=== PATIENT | female | born 1980 | race Caucasian/White ===

== ENCOUNTER 2020-06-28 06:12 | Emergency (ER) | payer OTHER, SELFPAY ==
[2020-06-28 06:30] VITALS: BP 152/87; PULSE 86; RESP 20; TEMP 36.5; O2SAT 99; BMI 19.1
--- NOTE | 2020-06-28 07:05 | HMH.EDWNDL ---
ED Disposition Clinical Impression: Finger laceration Qualifiers: Encounter type: initial encounter Finger: index finger Damage to nail status: without damage Foreign body presence: without foreign body Laterality: right Qualified Code(s): S61.210A - Laceration without foreign body of right index finger without damage to nail, initial encounter Disposition: Home, Self-Care Condition on Discharge: Good Instructions: DI for Laceration Repair Additional Instructions: sutures out 10 days and recheck if needed Referrals: PCP,No [Primary Care Provider] - - Critical Care Critical Care Time: No Attestation: On 06/28/20, the high probability of a clinically significant, sudden or life threatening deterioration of the following system(s) required my full and direct attention, intervention and personal management. The time I documented below is in addition to time spent performing reported procedures but includes the following listed in this critical care notation. Medical Decision Making - Medical Records Medical records reviewed: Yes: I reviewed the patient's medical records. - Homer Inquiry Pt receiving controlled substance: No Vital Signs: 06/28/20 06:30 Temperature 97.7 F Temperature Source Oral Pulse Rate [Left] 86 Respiratory Rate 20 Blood Pressure [Right Arm] 152/87 H Blood Pressure Mean [Right Arm] 108 Blood Pressure Source [Right Arm] Automatic Cuff Blood Pressure Position [Right Arm] Sitting 02 Sat by Pulse Oximetry 99 Oxygen Delivery Method Room Air Orders (Tests/Meds): ED MEDICATIONS Discontinued Medications Generic Name Dose Route Start Last Admin Trade Name Freq PRN Reason Stop Dose Admin Tetanus/Diphtheria Toxoids 0.5 ml 06/28/20 06:40 06/28/20 06:43 Tetanus-Diphth Toxoid, Adult 0.5ml Syr IM 06/28/20 06:41 0.5 ml .ONCE ONE Administration Wound/Laceration HPI - General Chief Complaint: Wound/Laceration Stated Complaint: AO 06/28/20 0400 Laceration right index finger Time Seen by Provider: 06/28/20 06:50 Mode of Arrival: Ambulatory Source of Information: Patient, Significant Other, Medical Record Limitations: No Limitations Description of Symptoms (Recalled from ER Triage Doc. by RN): Pt states she cutting lettuce and sliced the end of her right index finger. Lac is approx 2cm long and bleeding is controlled. - History of Present Illness HPI narrative: lac rt index finger distal finger volar surface Onset (ago): hour(s) Extremity Location: Right: hand Place: home Patient tetanus UTD: No Context: sharp object use Associated symptoms: none - Related Data Home Medications Medication Instructions Recorded Confirmed No Known Home Medications 06/28/20 06/28/20 Allergies Allergy/AdvReac Type Severity Reaction Status Date / Time No Known Allergies Allergy Verified 06/28/20 06:39 [facility] History - Hepatitis A Screen Drug use history?: No High risk sexual behaviors?: No History of sexually transmitted infection?: No Currently employed?: No Childcare worker?: No Do you have indoor plumbing?: Yes Do you have electricity?: Yes Attestation statement:: This patient has been screened for Hepatitis A risk factors. I have reviewed the patient's past medical history: Yes Medical History: Denies:: Diabetes Mellitus Type 1, Diabetes Mellitus Type 2 - Social History Smoking Status: Current every day smoker Tobacco Type: cigarettes # Packs/Day (cigarettes): 1 Alcohol Intake: never Occupational Status: unemployed ROS Obtained: Yes All systems reviewed & no additional complaints - Constitutional Constitutional: Denies fever(s) - Eyes Eyes: Denies change in vision - ENT Ears, Nose, Mouth, and Throat: Denies sore throat - Cardiovascular Cardiovascular: Denies chest pain - Respiratory Respiratory: Denies cough - Gastrointestinal Gastrointestingal: Denies: abdominal pain - Genitourinary Female Genitourinary: Denies hematuria
[2020-06-28 07:19] VITALS: BP 133/71; PULSE 76; RESP 17; TEMP 36.7; O2SAT 98
== END 2020-06-28 07:14 | disposition home or self-care (01) ==
PROVIDERS: Emergency Provider Emergency Medicine
DX: S61.210A Laceration without foreign body of right index finger without damage to nail, initial encounter (principal); W26.0XXA Contact with knife, initial encounter; Y92.010 Kitchen of single-family (private) house as the place of occurrence of the external cause; Z23 Encounter for immunization; F17.210 Nicotine dependence, cigarettes, uncomplicated
CPT/HCPCS: 12001; 64450; 90714; 99281

== ENCOUNTER 2020-08-28 12:34 | Observation (INO) | payer OTHER, SELFPAY ==
[2020-08-28] VITALS (7 sets, daily range): BP systolic 112–160; BP diastolic 66–91; PULSE 65–138; RESP 12–22; TEMP 36.8–37.1; O2SAT 96–100; BMI 20.7; BMI 19.3
--- NOTE | 2020-08-28 12:27 | ECG_ITS ---
APPROVED REPORT Exam: Resting ECG HR:147 bpm ECG Measurements Heart Rate 147 AXES [place] 118 P 74 QRSd 72 QRS 72 QT 278 T -41 QTc 435 Conclusion Sinus tachycardia Biatrial enlargement ST & T wave abnormality, consider inferior ischemia vs rate effect Abnormal ECG Electronically signed by : Jack Villanueva, 09/01/2020 07:35:27
--- NOTE | 2020-08-28 12:40 | XR_ITS ---
PROCEDURE: XR CHEST 2V CLINICAL HISTORY: not feeling well COMPARISON: No exams were available for comparison FINDINGS: The cardiomediastinal silhouette and pulmonary vascularity are within normal limits. Bilateral nodular opacities are present overlying the 5th rib on both sides consistent with nipple shadows. There is an additional 1 cm indeterminate nodule of the lingula. The remaining lungs are clear. There are mild degenerative changes in the midthoracic spine. IMPRESSION: 1 cm indeterminate nodule of the lingula. Consider chest CT for further evaluation. Dictated by: Alek Baugh MD 08/28/2020 14:08 Alek Baugh MD in [place] 08/28/2020 14:08
--- NOTE | 2020-08-28 12:48 | HMH.EDGENADL ---
ED Disposition Clinical Impression: Shortness of breath, Intravenous drug abuse, Sinus tachycardia Chest pain Qualifiers: Chest pain type: unspecified Qualified Code(s): R07.9 - Chest pain, unspecified Leukocytosis Qualifiers: Leukocytosis type: unspecified Qualified Code(s): D72.829 - Elevated white blood cell count, unspecified Disposition: Admitted as Observation Condition on Discharge: Good - Critical Care Critical Care Time: No Attestation: On , the high probability of a clinically significant, sudden or life threatening deterioration of the following system(s) required my full and direct attention, intervention and personal management. The time I documented below is in addition to time spent performing reported procedures but includes the following listed in this critical care notation. Medical Decision Making - [place] Inquiry Pt receiving controlled substance: No Vital Signs: 08/28/20 12:35 08/28/20 15:00 08/28/20 15:30 Temperature 98.7 F Temperature Source Oral Pulse Rate 130 H 128 H Pulse Rate [Right] 138 H Respiratory Rate 16 17 21 Blood Pressure 112/74 122/78 Blood Pressure [Right Arm] 124/91 H Blood Pressure Mean [Right Arm] 102 Blood Pressure Source [Right Arm] Automatic Cuff Blood Pressure Position [Right Arm] Sitting 02 Sat by Pulse Oximetry 100 98 99 Oxygen Delivery Method Room Air 08/28/20 16:30 Temperature Temperature Source Pulse Rate 122 H Pulse Rate [Right] Respiratory Rate 12 Blood Pressure 124/70 Blood Pressure [Right Arm] Blood Pressure Mean [Right Arm] Blood Pressure Source [Right Arm] Blood Pressure Position [Right Arm] 02 Sat by Pulse Oximetry 98 Oxygen Delivery Method - Lab Data Lab Results 08/28/20 12:40: WBC 23.6 H*, RBC 4.57, Hgb 13.3, Hct 42.0, MCV 92.0, MCH 29.2, MCHC 31.7 L, RDW 14.0, Plt Count 272, MPV 8.6, Neut % (Auto) 97.3 H, Lymph % (Auto) 1.1 L, [place] % (Auto) 0.5 L, Eos % (Auto) 0.9, Baso % (Auto) 0.3, Neut # (Auto) 23.0 H, Lymph # (Auto) 0.3 L, [place] # (Auto) 0.1, Eos # (Auto) 0.2, Baso # (Auto) 0.1, Total Counted 100, Neutrophils % (Manual) 94 H, Band Neutrophils % 2.0, Lymphocytes % (Manual) 1 L, Monocytes % (Manual) 2, Eosinophils % (Manual) 1, Platelet Estimate Normal, Hypochromasia 1+ 08/28/20 12:40: Sodium 136, Potassium 3.7, Chloride 100, Carbon Dioxide 24, Anion Gap 15.7 H, BUN 17, Creatinine 0.90, Estimated Creat Clear 76, Estimated GFR 70, Est GFR ( Amer) 85, Glucose 165 H, Calcium 9.3, Total Bilirubin 1.7 H, AST 74 H, ALT 72, Alkaline Phosphatase 154 H, Troponin I < 0.01, Total Protein 8.1, Albumin 4.3, Globulin 3.8 H, Albumin/Globulin Ratio 1.1 08/28/20 12:40: ESR 14 08/28/20 12:40: C-Reactive Protein 11.5 H 08/28/20 12:40: TSH 45.70 H, Free T4 Index 1.6 L, Thyroxine (T4) 7.2, T3 Uptake 22 L 08/28/20 12:45: Urine Color Yellow, Urine Appearance Clear, Urine pH 6.0, Ur Specific [place] 1.010, Urine Protein 1+, Urine Glucose (UA) Trace, Urine Ketones Negative, Urine Blood Negative, Urine Nitrate Positive, Urine Bilirubin 2+ A, Urine Urobilinogen >=8.0, Ur Leukocyte Esterase Trace, Urine RBC None, Urine WBC 3-5, Ur Squamous Epith Cells 3-5, Urine Bacteria None 08/28/20 12:45: Urine HCG, Qual Negative 08/28/20 12:45: Urine Opiates Screen Positive H, Urine Methadone Screen Negative, Ur Barbituates Screen Negative, Ur Phencyclidine Scrn Negative, Ur Amphetamines Screen TNP, U Benzodiazepines Scrn Negative, Urine Cocaine Screen Negative, U Marijuana (THC) Screen Negative 08/28/20 13:18: Lactate 3.3 H 08/28/20 16:06: Troponin I < 0.01 Result diagrams: 08/28/20 12:40 08/28/20 12:40 Orders (Tests/Meds): ED MEDICATIONS Generic Name Dose Route Start Last Admin Trade Name Freq PRN Reason Stop Dose Admin Piperacillin Sod/Tazobactam 100 mls @ 200 mls/hr 08/28/20 18:00 Sod 4.5 gm/ Sodium Chloride IV 09/11/20 17:59 Q6H [facility] Protocol Miscellaneous 1 each 08/28/20 18:00 08/28/20 18:02 Vancomycin Consult
[2020-08-28 12:52] LABS: Basophils # 0.1 K/mm3 (0-0.2); Basophils % 0.3 % (0.1-2.0); Eosinophils # 0.2 K/mm3 (0.0-0.4); Eosinophils % 0.9 % (0.1-12.0); Hemoglobin 13.3 g/dL (12.2-16.2); Lymphocytes # 0.3 K/mm3 (0.7-4.5); Lymphocytes % 1.1 % (10-50); Mean Corpuscular HGB Conc 31.7 g/dL (31.8-35.4); Mean Corpuscular Hemoglobin 29.2 pg (27.0-31.2); Mean Platelet Volume 8.6 fl (7.4-10.4); Monocytes # 0.1 K/mm3 (0.1-1.0); Monocytes % 0.5 % (1.7-9.3); Neutrophils % 97.3 % (37.0-80.0); Platelet Count 272 K/mm3 (142-424); Red Blood Count 4.57 M/mm3 (4.20-5.40); White Blood Count 23.6 K/mm3 (4.8-10.8)
[2020-08-28 12:54] LABS: Microscopic, Urine URINE MICROSCOPIC (MICROSCOPIC)
[2020-08-28 12:56] LABS: Appearance,Urine CLEAR (Clear); Blood, Urine Negative (Negative); Color,Urine YELLOW (Yellow); Glucose,Urine (UA) TRACE (Negative); Ketones,Urine Negative (Negative); Leukocyte Esterase,Urine TRACE (Negative); Nitrate,Urine POSITIVE (Negative); Protein,Urine 1+ (Negative); Urobilinogen,Urine >=8.0 EU/dl (0.2)
[2020-08-28 12:56] LABS: MANUAL DIFFERENTIAL MANUAL DIFFERENTIAL (MANUAL DIFF)
[2020-08-28 12:57] LABS: Chloride 100 mmol/L (98-107); Potassium 3.7 mmoL/L (3.5-5.1); Sodium 136 mmol/L (136-145)
[2020-08-28 12:59] LABS: Blood Urea Nitrogen 17 mg/dl (7-17); Creatinine Clearance Estimated 76 mL/min (50-200); Estimated Glomerular Filt Rate 70 ml/min (>60); GFR (African American) 85 ML/MIN (>60)
[2020-08-28 13:00] LABS: Alanine Aminotransferase 72 U/L (12-78); Albumin Level 4.3 g/dl (3.5-5.0); Albumin/Globulin Ratio 1.1 (1.1-1.8); Alkaline Phosphatase 154 U/L (38-126); Anion Gap 15.7 mEq/L (5-15); Aspartate Amino Transferase 74 U/L (14-36); Bilirubin,Total 1.7 mg/dl (0.2-1.3); Carbon Dioxide 24 mmol/L (22.0-30.0); Globulin 3.8 g/dL (1.3-3.2); Glucose 165 mg/dl (74-100); Total Protein,Serum 8.1 g/dl (6.3-8.2)
[2020-08-28 13:01] LABS: Bilirubin,Urine 2+ (Negative)
[2020-08-28 13:01] LABS: Calcium 9.3 mg/dl (8.4-10.2)
[2020-08-28 13:03] LABS: Urine Pregnancy, HCG Qual. Negative (Negative)
[2020-08-28 13:17] LABS: C-Reactive Protein 11.5 mg/L (0-4)
[2020-08-28 13:22] LABS: Troponin I < 0.01 ng/ml (0.00-0.034)
[2020-08-28 13:31] LABS: Erythrocyte Sedimentation Rate 14 mm/hr (0-20)
[2020-08-28 13:44] LABS: Lactic Acid 3.3 mmol/L (0.7-2.1)
--- NOTE | 2020-08-28 13:54 | CT_ITS ---
PROCEDURE: CT ANGIO CHEST CLINCIAL INDICATION: chest pain, soa COMPARISON: CR XR CHEST 2V from 08/28/2020 TECHNIQUE: IV Contrast: 70ML Isovue 370 Axial images obtained with sagittal and coronal reformats. All CT scans at the facility use one or more dose reduction, viz: automated exposure control, ma/kV adjustment per patient size (including targeted exams where dose is matched to indication, i.e. head), or iterative reconstruction technique. FINDINGS: HEART AND MEDIASTINAL STRUCTURES: No mediastinal or hilar mass. No adenopathy. No evidence of pulmonary embolus, aortic aneurysm, or aortic dissection.. LUNGS AND PLEURAL SPACES: Minimal ground-glass opacity is noted in the right upper lobe posteriorly image 54 series 3. There is a partially calcified nodule within the lingula measuring 13 mm. No other nodules are evident. No effusions or infiltrates. Minimal dependent changes noted in the lower lobes posteriorly. BONY STRUCTURES: Degenerative changes thoracic spine UPPER ABDOMEN: Nodularity is present in the retroperitoneum on the left consistent with mild adenopathy and is incompletely imaged. ADDITIONAL FINDINGS: No other significant abnormalities. IMPRESSION: 1. No acute intrathoracic findings. No evidence of pulmonary embolus or aortic aneurysm or dissection. 2. Minimal ground-glass opacity in the right upper lobe posteriorly nonspecific. 3. Partially calcified nodule within the lingula consistent with a granuloma. 4. Mild left-sided retroperitoneal adenopathy incompletely image. Dictated by: Alek Baugh MD 08/28/2020 15:09 Alek Baugh MD in [place] 08/28/2020 15:09
[2020-08-28 14:26] LABS: Free Thyroxine Index 1.6 ug/dL (5.93-13.13); T4 (Thyroxine) 7.2 ug/dl (5.53-11.0); Triiodothryronine (T3) Uptake 22 % (23.5-40.5)
[2020-08-28 15:11] LABS: Eosinophils % 1 % (0-3); Lymphocytes % 1 % (10-50); Monocytes % 2 % (2-9); Neutrophils % 94 % (42-76); Platelet Estimate Normal; Total Cells Counted 100
[2020-08-28 15:13] LABS: Hypochromasia 1+
--- NOTE | 2020-08-28 15:58 | CA_ITS ---
APPROVED REPORT EXAM: Comprehensive 2D, Doppler, and color-flow Echocardiogram Candy Wrapping Machine Operator: NEMO Bose, RVS Ht: 5 ft 5 in Wt: 125lbs BSA: 1.62 BP: 124/91 mmHg Indications: CP, Anxiety, IV drug abuse, r/o endocarditis Echo Enhancing Agent Comments: Technically difficult exam :patient in constant motion with hyperventillation and elevated heart rate. 2D Dimensions IVSd 0.80 cm LVEF (Visual) 59.40 % PWd 0.68 cm LVDd 4.07 cm LVDs 2.80 cm Aortic Root 2.53 cm Left Atrium 3.39 cm LVOT 1.84 cm (M/F) 1.5-2.5 M-Mode Dimensions LVDd 5.17 cm (3.5-5.7) LVDs 3.07 cm (3.5-5.7) EF (Teich) 71.00% EPSs 0.30 cm FS 40.60% EDV (Teich) 127.80 mL TAPSE 2.12 (<1.7) ESV (Teich) 37.00 mL LV Diastology E Decel Time 97.00 (160-240 msec) E/A Ratio 1.47 MED E' 19.30 (< 7 cm/sec) MED A' 12.40 cm/s E'/MED E' Ratio 4.87 (>14) LAT E' 20.30 (<10 cm/sec) LAT A' 12.80 cm/s E/LAT E' Ratio 4.63 (>14) Aortic Valve LVOT Max 102.00 (70-110 cm/s) LVOT VTI 16.78 cm AoV Peak Juan. 130.00 (50-130 cm/s) AO Peak GR. 6.80 mmHg AO Mean GR. 3.40 (<5 mmHg) AO VTI 19.45 (18-25 cm) JAKE (VTI) 2.29 (2.5-4.5 cm2) Mitral Valve MV A Velocity 64.00 (40-130 cm/s) E/A Ratio 1.47 MV Decel. Time 97.00 (160-240 ms) Pulmonary Valve PV Peak Velocity 91.00 (50-150 cm/s) Tricuspid Valve TR P. Velocity 219.00 cm/s Left Ventricle Left atrium is normal size, left ventricle is normal size, preserved left ventricular systolic function, visually estimated ejection fraction 55% with no regional wall motion abnormality, diastolic parameters are within normal range. Right Ventricle Right atrium and right ventricle are normal size and contractility. Aortic Valve Aortic valve is minimally thickened and fibrosed, there is no aortic stenosis or aortic insufficiency. Mitral Valve Mitral valve grossly normal, there is trace mitral regurgitation. Tricuspid Valve Tricuspid grossly normal, there is trace tricuspid regurgitation, tricuspid regurgitation jet velocity is inadequate for calculation of the right ventricular systolic pressure. Pulmonic Valve Pulmonic valve is poorly visualized. Great Vessels Aortic root is normal size. Pericardium No significant pericardial effusion noted. Conclusion 1. Normal left ventricular size, preserved left ventricular systolic function, visually estimated ejection fraction 55% with no regional wall motion abnormality, diastolic parameters are within normal range 2. Trace mitral and tricuspid regurgitation. 3. No significant pericardial effusion noted. Electronically signed by : Oscar Marie, 08/28/2020 18:37:06
--- NOTE | 2020-08-28 16:05 | PC.NURSE ---
vascular here for echo
[2020-08-28 16:58] LABS: Troponin I < 0.01 ng/ml (0.00-0.034)
[2020-08-28 17:31] LABS: Reflex Lactic Add Lactic Reflex
--- NOTE | 2020-08-28 17:41 | PC.NURSE ---
speaking with Dr. Bullock
[2020-08-28 17:43] LABS: Benzodiazepines Screen,Urine Negative ng/ml (<200)
[2020-08-28 17:44] LABS: Barbiturates Screen,Urine Negative ng/ml (<200)
[2020-08-28 17:45] LABS: Cannabinoid Screen,Urine Negative ng/ml (<50); Cocaine Screen,Urine Negative ng/ml (<300)
[2020-08-28 17:46] LABS: Methadone Screen,Urine Negative ng/ml (<300)
[2020-08-28 17:47] LABS: Opiate Screen,Urine Positive ng/ml (<300); Phencyclidine Screen,Urine Negative ng/ml (<25)
--- NOTE | 2020-08-28 17:57 | PC.NURSE ---
ordered supper trauy
--- NOTE | 2020-08-28 18:00 | PC.NURSE ---
notified house of admission
--- NOTE | 2020-08-28 18:00 | PC.NURSE ---
paged pharmacy for vanc consult
--- NOTE | 2020-08-28 18:02 | PC.NURSE ---
Spoke with Shaquille from [facility] pharmacy
--- NOTE | 2020-08-28 18:04 | PC.NURSE ---
Spoke with Shaquille from [facility] about vanc dosing. Shaquille advised to give patient a 1 gram loading dose and then to administer 750mg q 12 hrs. Advised he would put the orders in. Notified MD of dosing
[2020-08-28 18:05] LABS: Lactic Acid Follow Up (RFLX 1) 0.9 mmol/L (0.7-2.1)
[2020-08-28 19:33] LABS: Troponin I < 0.01 ng/ml (0.00-0.034)
--- NOTE | 2020-08-28 19:37 | HMH.HP ---
*Admission Date: 08/28/20 *Chief complaint: leukocytosis,cough,ivda *History of present illness: 3-day history of substernal chest pain, worse with breathing and cough, shortness of breath, worse with exertion. [place] hot and sweaty this morning but did not take her temperature. Nonproductive cough. No vomiting or diarrhea or abdominal pain. Also says when she awakened this morning she had an occipital headache and low backache which have both improved markedly. States that she is healthy except for thyroid problems and IV drug abuse. She had radiation treatment of Zoya's thyroiditis. She is supposed to be on propanolol but has been out for 3 days. She says that she was supposed to be put on thyroid supplement, but lost her insurance. She says that she has a history of IV drug abuse, she was clean for 8 years but relapsed about a year ago. Uses heroin daily. She last used yesterday and also used speed yesterday, which is not her usual drug of choice. Used a lot of drugs this past weekend. Admits to sharing needles. Prior history of hepatitis C, says she was treated and cured. No history of endocarditis. States that she had an abscess in her left antecubital area 3 days ago and was treated with antibiotics, it is now gone. Patient's work-up in the emergency room included an echo, chest x-ray, CT of the chest, urinalysis, sed rate and CRP. She had a markedly elevated white count of 23.6. Echo report is as follows Conclusion 1. Normal left ventricular size, preserved left ventricular systolic function, visually estimated ejection fraction 55% with no regional wall motion abnormality, diastolic parameters are within normal range 2. Trace mitral and tricuspid regurgitation. 3. No significant pericardial effusion noted. CT report is as follows 1. No acute intrathoracic findings. No evidence of pulmonary embolus or aortic aneurysm or dissection. 2. Minimal ground-glass opacity in the right upper lobe posteriorly nonspecific. 3. Partially calcified nodule within the lingula consistent with a granuloma. 4. Mild left-sided retroperitoneal adenopathy incompletely image Patient relays that she had an infection in her left AC fossa. History this sounds like phlebitis. There are no palpable lesions in this area, no redness warmth or purulence. The patient received her first Covid vaccination last week, she got the Pfizer variant. [facility] History Medical History: Reports:: Arrhythmia, Hypertension Denies:: Cancer, Diabetes Mellitus Type 1, Diabetes Mellitus Type 2 *Have you ever received a pneumonia vaccine?: No *Have you received a flu vaccine this season?: No Other Medical History: Reports: Thyroid Disease (GRAVES) - *Social History Last grade of school completed: High school graduate Smoking Status: Current every day smoker Tobacco Type: cigarettes # Packs/Day (cigarettes): 1 Alcohol Intake: never Substance Use Type: heroin *Occupational Status:: unemployed Housing: house *Travel in the last 8 weeks: None Family Hx:: Unable to obtain Review of Systems - Constitutional Reports fatigue - Eyes Denies change in vision - ENT Denies abnormal hearing - *Cardiovascular Reports rapid, pounding, or irregular heartbeat - *Respiratory Reports chest congestion, Reports cough - *Gastrointestinal Denies abdominal pain - *Genitourinary Denies difficulty urinating - *Musculoskeletal Denies abnormal walking - Integumentary/Breasts Reports lesions, Denies yellowing of the skin - *Neurologic Reports headache(s), Denies numbness, Denies weakness - Psychiatric Reports behavioral changes - Endocrine Reports rapid, pounding, or irregular heartbeat - Hematologic/Lymphatic Denies easy bleeding, Denies easy bruising - Allergic/Immunologic Denies hives Meds Home Medications Medication Instructions Recorded Confirmed Type Propranolol HCl 40 mg PO BID 08/28/20 08/28/20 History Ken
[2020-08-29] VITALS: BP 116/69; PULSE 99; RESP 18; TEMP 36.9; O2SAT 100
[2020-08-29 04:00] VITALS: BP 132/84; PULSE 98; RESP 18; TEMP 36.9; O2SAT 99
[2020-08-29 05:00] VITALS: BMI 19.7
--- NOTE | 2020-08-29 06:51 | PC.NURSE ---
A&OX4. PT TOLERATING RA WELL. PT INDEPENDENT IN ROOM. PT C/O ANXIETY AND RESTLESSNESS THIS SHIFT. GIVEN ATIVAN X1 PER NEUS. ON REASSESSMENT PT RESTING IN BED. PT IS VERY PLEASANT AND TALKATIVE. VERY OPEN ABOUT HER DRUG USE. NO OTHER C/O, VSS WILL CONTINUE TO MONITOR.
[2020-08-29 07:19] LABS: Basophils # 0.1 K/mm3 (0-0.2); Basophils % 0.2 % (0.1-2.0); Eosinophils # 0.3 K/mm3 (0.0-0.4); Eosinophils % 1.5 % (0.1-12.0); Hematocrit 34.7 % (37.0-47.0); Lymphocytes # 1.9 K/mm3 (0.7-4.5); Lymphocytes % 8.3 % (10-50); Mean Corpuscular HGB Conc 32.4 g/dL (31.8-35.4); Mean Corpuscular Hemoglobin 29.5 pg (27.0-31.2); Mean Corpuscular Volume 91.2 fl (81-99); Mean Platelet Volume 8.4 fl (7.4-10.4); Monocytes # 0.8 K/mm3 (0.1-1.0); Monocytes % 3.6 % (1.7-9.3); Neutrophils # 19.3 K/mm3 (1.8-7.8); Neutrophils % 86.3 % (37.0-80.0); Platelet Count 225 K/mm3 (142-424); Red Blood Count 3.81 M/mm3 (4.20-5.40); Red Cell Distribution Width 14.2 % (11.5-17.5); White Blood Count 22.4 K/mm3 (4.8-10.8)
[2020-08-29 07:28] LABS: Alanine Aminotransferase 45 U/L (12-78); Albumin Level 3.2 g/dl (3.5-5.0); Alkaline Phosphatase 95 U/L (38-126); Anion Gap 7.3 mEq/L (5-15); Aspartate Amino Transferase 45 U/L (14-36); Bilirubin,Total 0.6 mg/dl (0.2-1.3); Blood Urea Nitrogen 18 mg/dl (7-17); Carbon Dioxide 24 mmol/L (22.0-30.0); Chloride 108 mmol/L (98-107); Creatinine Clearance Estimated 81 mL/min (50-200); Estimated Glomerular Filt Rate 80 ml/min (>60); GFR (African American) 97 ML/MIN (>60); Globulin 3.2 g/dL (1.3-3.2); Glucose 104 mg/dl (74-100); Potassium 3.3 mmoL/L (3.5-5.1); Sodium 136 mmol/L (136-145); Total Protein,Serum 6.4 g/dl (6.3-8.2)
[2020-08-29 07:32] LABS: Calcium 8.2 mg/dl (8.4-10.2)
[2020-08-29 07:35] VITALS: BP 117/81; PULSE 93; RESP 18; TEMP 36.9; O2SAT 98
--- NOTE | 2020-08-29 07:56 | HMH.PHACONS ---
- Pharmacy Consult Date: 08/29/20 Time: 07:56 Referring provider: DR. CANDELARIA Reason for Consult:: VANCOMYCIN CONSULT Allergies and ADEs:: Allergies Allergy/AdvReac Type Severity Reaction Status Date / Time No Known Allergies Allergy Verified 06/28/20 06:39 Home Medications:: Home Medications Medication Instructions Recorded Confirmed Type Propranolol HCl 40 mg PO BID 08/28/20 08/28/20 History Height: 1.65 m Weight: 53.722 kg Laboratory Results:: Laboratory Results - last 24 hr 08/28/20 12:40: WBC 23.6 H*, RBC 4.57, Hgb 13.3, Hct 42.0, MCV 92.0, MCH 29.2, MCHC 31.7 L, RDW 14.0, Plt Count 272, MPV 8.6, Neut % (Auto) 97.3 H, Lymph % (Auto) 1.1 L, [place] % (Auto) 0.5 L, Eos % (Auto) 0.9, Baso % (Auto) 0.3, Neut # (Auto) 23.0 H, Lymph # (Auto) 0.3 L, [place] # (Auto) 0.1, Eos # (Auto) 0.2, Baso # (Auto) 0.1, Total Counted 100, Neutrophils % (Manual) 94 H, Band Neutrophils % 2.0, Lymphocytes % (Manual) 1 L, Monocytes % (Manual) 2, Eosinophils % (Manual) 1, Platelet Estimate Normal, Hypochromasia 1+ 08/28/20 12:40: Sodium 136, Potassium 3.7, Chloride 100, Carbon Dioxide 24, Anion Gap 15.7 H, BUN 17, Creatinine 0.90, Estimated Creat Clear 76, Estimated GFR 70, Est GFR ( Amer) 85, Glucose 165 H, Calcium 9.3, Total Bilirubin 1.7 H, AST 74 H, ALT 72, Alkaline Phosphatase 154 H, Troponin I < 0.01, Total Protein 8.1, Albumin 4.3, Globulin 3.8 H, Albumin/Globulin Ratio 1.1 08/28/20 12:40: ESR 14 08/28/20 12:40: C-Reactive Protein 11.5 H 08/28/20 12:40: TSH 45.70 H, Free T4 Index 1.6 L, Thyroxine (T4) 7.2, T3 Uptake 22 L 08/28/20 12:45: Urine Color Yellow, Urine Appearance Clear, Urine pH 6.0, Ur Specific [place] 1.010, Urine Protein 1+, Urine Glucose (UA) Trace, Urine Ketones Negative, Urine Blood Negative, Urine Nitrate Positive, Urine Bilirubin 2+ A, Urine Urobilinogen >=8.0, Ur Leukocyte Esterase Trace, Urine RBC None, Urine WBC 3-5, Ur Squamous Epith Cells 3-5, Urine Bacteria None 08/28/20 12:45: Urine HCG, Qual Negative 08/28/20 12:45: Urine Opiates Screen Positive H, Urine Methadone Screen Negative, Ur Barbituates Screen Negative, Ur Phencyclidine Scrn Negative, Ur Amphetamines Screen TNP, U Benzodiazepines Scrn Negative, Urine Cocaine Screen Negative, U Marijuana (THC) Screen Negative 08/28/20 13:18: Lactate 3.3 H 08/28/20 16:06: Troponin I < 0.01 08/28/20 17:50: Lactate 0.9 08/28/20 18:55: Troponin I < 0.01 08/29/20 06:55: Sodium 136, Potassium 3.3 L, Chloride 108 H, Carbon Dioxide 24, Anion Gap 7.3, BUN 18 H, Creatinine 0.80, Estimated Creat Clear 81, Estimated GFR 80, Est GFR ( Amer) 97, Glucose 104 H D, Calcium 8.2 L D, Total Bilirubin 0.6, AST 45 H D, ALT 45 D, Alkaline Phosphatase 95, Total Protein 6.4, Albumin 3.2 L D, Globulin 3.2, Albumin/Globulin Ratio 1.0 L Medical History: Reports:: Arrhythmia, Hypertension Denies:: Cancer, Diabetes Mellitus Type 1, Diabetes Mellitus Type 2 Assessment and Plan (1) Graves disease Status: Chronic Category: Medical Code(s): E05.00 - Thyrotoxicosis with diffuse goiter without thyrotoxic crisis or storm (2) Chest pain Status: Acute Qualifiers: Chest pain type: unspecified Qualified Code(s): R07.9 - Chest pain, unspecified Category: Medical Code(s): R07.9 - Chest pain, unspecified (3) Intravenous drug abuse Status: Chronic Category: Social Hx Code(s): F19.10 - Other psychoactive substance abuse, uncomplicated (4) Leukocytosis Status: Acute Qualifiers: Leukocytosis type: unspecified Qualified Code(s): D72.829 - Elevated white blood cell count, unspecified Category: Medical Code(s): D72.829 - Elevated white blood cell count, unspecified (5) Sinus tachycardia Status: Acute Category: Medical Code(s): R00.0 - Tachycardia, unspecified - Assessment and plan all Dx Assessment and Plan for all problems:: Age: 40 yo Serum creatinine: 0.8 mg/dL Height: 65.0 Inches Weight (kg): 53.7 Assessment:
[2020-08-29 07:57] LABS: Hemoglobin 11.3 g/dL (12.2-16.2); MANUAL DIFFERENTIAL MANUAL DIFFERENTIAL (MANUAL DIFF)
--- NOTE | 2020-08-29 08:06 | HMH.PHAVTE ---
[facility] Pharmacy VTE Monitoring - Patient Demographics Admission date: 08/29/20 Report Date: 08/29/20 Time: 08:06 Allergies/Adverse Reactions: Patient Allergies No Known Allergies Allergy (Verified 06/28/20 06:39) Height: 1.65 m Weight: 53.722 kg Patient Problems: Current Active Problems Chest pain (Acute) Shortness of breath (Acute) Leukocytosis (Acute) Intravenous drug abuse (Chronic) Sinus tachycardia (Acute) Graves disease (Chronic) - VTE Risk Labs: VTE Related Lab Results Hgb 11.3 g/dL (12.2-16.2) L D 08/29/20 06:55 Hct 34.7 % (37.0-47.0) L 08/29/20 06:55 Plt Count 225 K/mm3 (142-424) 08/29/20 06:55 BUN 18 mg/dl (7-17) H 08/29/20 06:55 Creatinine 0.80 mg/dl (0.52-1.04) 08/29/20 06:55 Estimated Creat Clear 81 mL/min (50-200) 08/29/20 06:55 Was VTE Risk Assessment Performed: Yes VTE Score: 0 VTE Risk Level: Very Low Risk Clinical Trial Participant: No - Prophylaxis VTE Prophylaxis Ordered?: Yes Types of VTE Prophylaxis: TEDS Knee High
[2020-08-29 08:50] LABS: Lymphocytes % 13 % (10-50); Monocytes % 4 % (2-9); Neutrophils % 83 % (42-76); Platelet Estimate Normal; RBC Morphology Normal; Total Cells Counted 100
--- NOTE | 2020-08-29 08:56 | HMH.ACPN2 ---
Internal Medicine - PN: Subj *Date: 08/29/20 *Time: 09:46 Interval history: 40-year-old female patient is resting in bed quietly, boyfriend asleep in recliner at bedside. She denies any chest pain during the night she does report that she takes a deep breath he feels like I am leaving ice . She does report using IV heroin daily as well as occasional IV methamphetamine, and recent alcohol abuse. Exam Vital signs and Labs for Last 24 Hours: Temp Pulse Resp BP Pulse Ox 98.5 F 93 H 18 117/81 98 08/29/20 07:35 08/29/20 07:35 08/29/20 07:35 08/29/20 07:35 08/29/20 07:35 Laboratory Results - last 24 hr 08/28/20 12:40: WBC 23.6 H*, RBC 4.57, Hgb 13.3, Hct 42.0, MCV 92.0, MCH 29.2, MCHC 31.7 L, RDW 14.0, Plt Count 272, MPV 8.6, Neut % (Auto) 97.3 H, Lymph % (Auto) 1.1 L, [place] % (Auto) 0.5 L, Eos % (Auto) 0.9, Baso % (Auto) 0.3, Neut # (Auto) 23.0 H, Lymph # (Auto) 0.3 L, [place] # (Auto) 0.1, Eos # (Auto) 0.2, Baso # (Auto) 0.1, Total Counted 100, Neutrophils % (Manual) 94 H, Band Neutrophils % 2.0, Lymphocytes % (Manual) 1 L, Monocytes % (Manual) 2, Eosinophils % (Manual) 1, Platelet Estimate Normal, Hypochromasia 1+ 08/28/20 12:40: Sodium 136, Potassium 3.7, Chloride 100, Carbon Dioxide 24, Anion Gap 15.7 H, BUN 17, Creatinine 0.90, Estimated Creat Clear 76, Estimated GFR 70, Est GFR ( Amer) 85, Glucose 165 H, Calcium 9.3, Total Bilirubin 1.7 H, AST 74 H, ALT 72, Alkaline Phosphatase 154 H, Troponin I < 0.01, Total Protein 8.1, Albumin 4.3, Globulin 3.8 H, Albumin/Globulin Ratio 1.1 08/28/20 12:40: ESR 14 08/28/20 12:40: C-Reactive Protein 11.5 H 08/28/20 12:40: TSH 45.70 H, Free T4 Index 1.6 L, Thyroxine (T4) 7.2, T3 Uptake 22 L 08/28/20 12:45: Urine Color Yellow, Urine Appearance Clear, Urine pH 6.0, Ur Specific [place]once 1.010, Urine Protein 1+, Urine Glucose (UA) Trace, Urine Ketones Negative, Urine Blood Negative, Urine Nitrate Positive, Urine Bilirubin 2+ A, Urine Urobilinogen >=8.0, Ur Leukocyte Esterase Trace, Urine RBC None, Urine WBC 3-5, Ur Squamous Epith Cells 3-5, Urine Bacteria None 08/28/20 12:45: Urine HCG, Qual Negative 08/28/20 12:45: Urine Opiates Screen Positive H, Urine Methadone Screen Negative, Ur Barbituates Screen Negative, Ur Phencyclidine Scrn Negative, Ur Amphetamines Screen TNP, U Benzodiazepines Scrn Negative, Urine Cocaine Screen Negative, U Marijuana (THC) Screen Negative 08/28/20 13:18: Lactate 3.3 H 08/28/20 16:06: Troponin I < 0.01 08/28/20 17:50: Lactate 0.9 08/28/20 18:55: Troponin I < 0.01 08/29/20 06:55: WBC 22.4 H*, RBC 3.81 L, Hgb 11.3 L D, Hct 34.7 L, MCV 91.2, MCH 29.5, MCHC 32.4, RDW 14.2, Plt Count 225, MPV 8.4, Neut % (Auto) 86.3 H, Lymph % (Auto) 8.3 L, [place] % (Auto) 3.6, Eos % (Auto) 1.5, Baso % (Auto) 0.2, Neut # (Auto) 19.3 H, Lymph # (Auto) 1.9, [place] # (Auto) 0.8, Eos # (Auto) 0.3, Baso # (Auto) 0.1, Total Counted 100, Neutrophils % (Manual) 83 H, Lymphocytes % (Manual) 13, Monocytes % (Manual) 4, Platelet Estimate Normal, RBC Morphology Normal 08/29/20 06:55: Sodium 136, Potassium 3.3 L, Chloride 108 H, Carbon Dioxide 24, Anion Gap 7.3, BUN 18 H, Creatinine 0.80, Estimated Creat Clear 81, Estimated GFR 80, Est GFR ( Amer) 97, Glucose 104 H D, Calcium 8.2 L D, Total Bilirubin 0.6, AST 45 H D, ALT 45 D, Alkaline Phosphatase 95, Total Protein 6.4, Albumin 3.2 L D, Globulin 3.2, Albumin/Globulin Ratio 1.0 L I & O for Last 24 hours: Intake & Output 08/26/20 08/27/20 08/28/20 08/29/20 23:59 23:59 23:59 23:59 Weight 116 lb 4 oz 118 lb 7 oz Microbiology Reports for the Last 24 Hours: Microbiology 08/28/20 15:20 Nasopharyngeal Coronavirus COVID-19 PCR - Final - Constitutional no acute distress, agitated - *Routine HEENT Exam Head: Present: normocephalic Eye: Present: EOMI ENT: Present: mucous membranes moist - *Routine Neck Exam Present: trachea midline. Absent: tracheal deviation - *Routine Respiratory Exam Present: CTA bilaterally. Absent: acc
[2020-08-29 10:22] LABS: Procalcitonin 29.5 ng/mL (0.0-2.0)
--- NOTE | 2020-08-29 10:22 | HMH.PHAINT ---
CLARIFIED HOME MEDICATION LIST USING LIST FROM PHARMACY AND PT INTERVIEW
--- NOTE | 2020-08-29 10:25 | HMH.CNCARD ---
History of Present Illness Consult date: 08/29/20 Requesting physician: Jeison Bullock Consult reason: shortness of breath Chief complaint: shortness of breath and chest pain History of present illness: 40-year-old female admitted to [facility] with increased shortness of breath. Cardiology was consulted due to worsening shortness of breath and elevated WBCs. Patient is resting quietly in the bed. Patient denies chest pain, tightness or pressure at this time. Patient does complain of increased shortness of breath especially with minimal exertion. Patient states her chest will hurt when she takes a deep breath. Patient has been complaining of a nonproductive cough for the past few days. She states she has been feeling hot all over. No fever noted. Denies nausea vomiting diarrhea. No swelling noted of the lower extremities. Patient does complain of palpitations. Patient does have history of sinus tachycardia in which she is to be taking propanolol. Patient states she has been out of her medications for quite some time. Patient is a known drug addict. Drug of choice is IV heroin daily and occasional meth and alcohol abuse. Patient states she has been doing recreational drugs for several years. Patient stated she had been a recovered drug abuser up until 1 year ago and then she had a relapse. 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 History of hepatitis C, which patient states she was treated and cured. Initial EKG performed revealed sinus tachycardia with a heart rate of 144 bpm. 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 Drug screen rhythm did reveal presence of opiates. WBCs are elevated at 22.4 and low potassium at 3.3. Serial troponins were performed which were negative. Thyroid panel has been ordered but results are not obtainable at this time. Echocardiogram was ordered to assess LV function and valve status. EF 55% with no regional wall abnormality with trace of mitral and tricuspid regurgitation. CTA of the chest revealed no pulmonary emboli or aortic aneurysm, minimal groundglass noted of the right upper lobe area. Patient is noncompliant with current medication regimen. Stressed the importance of taking medications on a regular basis. Patient verbalized understanding. Tobacco use noted. Patient states she smokes less than 1 pack/day depending on daily stress. Discussed with patient the risk of damage to the heart involving recreational drugs. Patient verbalized understanding and stated she is trying to get help. Echo:Conclusion 1. Normal left ventricular size, preserved left ventricular systolic function, visually estimated ejection fraction 55% with no regional wall motion abnormality, diastolic parameters are within normal range 2. Trace mitral and tricuspid regurgitation. 3. No significant pericardial effusion noted. Chest CTA IMPRESSION: 1. No acute intrathoracic findings. No evidence of pulmonary embolus or aortic aneurysm or dissection. 2. Minimal ground-glass opacity in the right upper lobe posteriorly nonspecific. 3. Partially calcified nodule within the lingula consistent with a granuloma. 4. Mild left-sided retroperitoneal adenopathy incompletely image. Discussed plan of care with Dr. Cohen. Patient will undergo DAV in the a.m. with Dr. Marie due to IV substance abuse history and worsening dyspnea. Echocardiogram was performed to EF 55% with no regional wall abnormality with a trace of mitral and tricuspid regurgitation. Discussed risk and benefits of undergoing DAV with patient. Patient verbalizes understanding and is agreeable to procedure. Pending on the results of the DAV, medication and therapy changes may be recommended. Patient will need to be n.p.o. after midnight tonight. Thank you for allowing cardiology to participate in the care of this patient. [facility] History I have reviewed the patient's past medical history: Yes Med
[2020-08-29 16:00] VITALS: BP 109/64; PULSE 103; RESP 17; TEMP 36.8; O2SAT 97
--- NOTE | 2020-08-29 17:07 | PC.NURSE ---
Pt alert and oriented and able to make needs known. Pt has rested this shift. Have given x 1 dose of ativan this am. CB in reach and spouse at bedside. Meds given per jun. S1,S2. Lungs cta, bs x 4. Resting in bed at this time. Pt is to be NPO at 0000, have explained this to pt and plans for DAV tomorrow. Mx continues.
[2020-08-29 20:00] VITALS: BP 124/83; PULSE 82; RESP 18; TEMP 37.1; O2SAT 98
[2020-08-30 04:00] VITALS: BP 92/52; PULSE 83; RESP 18; TEMP 36.8; O2SAT 98
[2020-08-30 04:44] LABS: Chloride 107 mmol/L (98-107); Potassium 3.4 mmoL/L (3.5-5.1); Sodium 137 mmol/L (136-145)
[2020-08-30 04:47] LABS: Anion Gap 11.4 mEq/L (5-15); Blood Urea Nitrogen 15 mg/dl (7-17); Calcium 8.6 mg/dl (8.4-10.2); Carbon Dioxide 22 mmol/L (22.0-30.0); Creatinine Clearance Estimated 81 mL/min (50-200); Estimated Glomerular Filt Rate 80 ml/min (>60); GFR (African American) 97 ML/MIN (>60); Glucose 151 mg/dl (74-100)
--- NOTE | 2020-08-30 04:59 | PC.NURSE ---
a&O. VSS. patient has been compliant and composed during shift. pt was instructed on npo status for DAV procedure in AM, patient verbalized understanding and has been compliant since 0000. patient verbalized anxiety r/t current infection, nurse consoled and offered support. nurse answered all questions as patient has asked. pt educated on use of call light and safety precautions; pt verbalized understanding. will continue to monitor.
[2020-08-30 05:00] VITALS: BMI 17.4
[2020-08-30 05:07] LABS: Vancomycin,Trough 7.2 ug/mL (5.0-10.0)
[2020-08-30 07:46] VITALS: BP 163/84; PULSE 80; RESP 18; TEMP 36.8; O2SAT 98
--- NOTE | 2020-08-30 08:48 | HMH.PNCARD ---
Subjective Date: 08/30/20 Time: 08:48 Principal diagnosis: chest pain Interval history: This is a 40-year-old white female who was admitted to the hospital with shortness of breath. The patient states that she was short of breath and felt as if she were swallowing glass and she could not get a deep breath. She states that this got severe and that is why she decided to come into the emergency department. She also has a nonproductive cough associated with the shortness of breath. The patient is a known IV drug user. She states that she used IV drugs for several years in her 20s and then when she was around 32 she quit using IV drugs for 8 years and recently restarted using IV heroin back in March 2020. She also uses alcohol regularly. This morning she denies any chest pain or pressure. She states that she still has some shortness of breath at times but this is much better. She is complaining of a sore throat and states that she thinks she may have strep throat. She denies any fever, chills, nausea, vomiting, diarrhea, PND or orthopnea. Patient is a scheduled to undergo DAV today due to her history of IV drug use to rule out any infective endocarditis. Exam Vital signs and Labs for Last 24 Hours: Temp Pulse Resp BP Pulse Ox 98.2 F 80 18 163/84 H 98 08/30/20 07:46 08/30/20 07:46 08/30/20 07:46 08/30/20 07:46 08/30/20 07:46 Laboratory Results - last 24 hr 08/29/20 06:55: Total Counted 100, Neutrophils % (Manual) 83 H, Lymphocytes % (Manual) 13, Monocytes % (Manual) 4, Platelet Estimate Normal, RBC Morphology Normal 08/29/20 06:55: Procalcitonin 29.5 H 08/30/20 04:30: Sodium 137, Potassium 3.4 L, Chloride 107, Carbon Dioxide 22, Anion Gap 11.4, BUN 15, Creatinine 0.80, Estimated Creat Clear 81, Estimated GFR 80, Est GFR ( Amer) 97, Glucose 151 H D, Calcium 8.6 08/30/20 04:30: Vancomycin Trough 7.2 I & O for Last 24 hours: Intake & Output 08/27/20 08/28/20 08/29/20 08/30/20 23:59 23:59 23:59 23:59 Intake Total 1060 / 1160 707 / 707 Output Total 0 / 0 Balance 1060 / 1160 707 / 707 Weight 116 lb 4 oz 118 lb 7 oz 104 lb 4 oz - Constitutional no acute distress, thin - *Routine HEENT Exam Head: Present: normocephalic, atraumatic Eye: Present: EOMI, PERRL ENT: Present: mucous membranes moist - *Routine Neck Exam Present: supple, full ROM, normal carotid upstroke. Absent: JVD, carotid bruit, lymphadenopathy - *Routine Respiratory Exam Present: CTA bilaterally - *Routine Cardiovascular Exam Present: RRR, Normal S1, Normal S2. Absent: murmur - *Routine Abdominal Exam Present: soft, normoactive bowel sounds. Absent: tenderness, distended - *Routine Extremities Exam Present: full ROM, pulses intact, normal capillary refill. Absent: cyanosis, clubbing, edema - *Routine Skin Exam Present: intact, warm. Absent: erythema, rash - *Routine Neurological Exam Present: alert, oriented X3, CN II-XII intact. Absent: sensory deficit, motor deficit Progress Note: A&P (1) Shortness of breath Status: Acute (2) Graves disease Status: Chronic (3) Chest pain Status: Acute (4) Intravenous drug abuse Status: Chronic (5) Leukocytosis Status: Acute (6) Sinus tachycardia Status: Acute (7) Heroin abuse Status: Acute (8) Methamphetamine abuse Status: Acute (9) ETOH abuse Status: Acute (10) Sepsis Status: Acute Assessment and Plan for All Diagnoses:: Plan: 1. Patient was admitted to the hospital with worsening shortness of breath with very minimal exertion. She states that it felt like she was swallowing glass and just could not get a deep breath. The patient has ruled out for an [place]. No plans for invasive cardiac testing. 2. The patient did have an echocardiogram which showed normal EF and no significant valvular disease. But given her history of IV drug use the patient is scheduled to undergo a DAV today to rule out infective endocarditis.
[2020-08-30 09:30] VITALS: BMI 19.8
--- NOTE | 2020-08-30 12:11 | HMH.DCSUM ---
General - General Admission date:: 08/28/20 Discharge date: 08/30/20 HPI HPI: 3-day history of substernal chest pain, worse with breathing and cough, shortness of breath, worse with exertion. [place] hot and sweaty this morning but did not take her temperature. Nonproductive cough. No vomiting or diarrhea or abdominal pain. Also says when she awakened this morning she had an occipital headache and low backache which have both improved markedly. States that she is healthy except for thyroid problems and IV drug abuse. She had radiation treatment of Zoya's thyroiditis. She is supposed to be on propanolol but has been out for 3 days. She says that she was supposed to be put on thyroid supplement, but lost her insurance. She says that she has a history of IV drug abuse, she was clean for 8 years but relapsed about a year ago. Uses heroin daily. She last used yesterday and also used speed yesterday, which is not her usual drug of choice. Used a lot of drugs this past weekend. Admits to sharing needles. Prior history of hepatitis C, says she was treated and cured. No history of endocarditis. States that she had an abscess in her left antecubital area 3 days ago and was treated with antibiotics, it is now gone. Patient's work-up in the emergency room included an echo, chest x-ray, CT of the chest, urinalysis, sed rate and CRP. She had a markedly elevated white count of 23.6. Echo report is as follows Conclusion 1. Normal left ventricular size, preserved left ventricular systolic function, visually estimated ejection fraction 55% with no regional wall motion abnormality, diastolic parameters are within normal range 2. Trace mitral and tricuspid regurgitation. 3. No significant pericardial effusion noted. CT report is as follows 1. No acute intrathoracic findings. No evidence of pulmonary embolus or aortic aneurysm or dissection. 2. Minimal ground-glass opacity in the right upper lobe posteriorly nonspecific. 3. Partially calcified nodule within the lingula consistent with a granuloma. 4. Mild left-sided retroperitoneal adenopathy incompletely image Patient relays that she had an infection in her left AC fossa. History this sounds like phlebitis. There are no palpable lesions in this area, no redness warmth or purulence. The patient received her first Covid vaccination last week, she got the Pfizer variant. Hospital Course Hospital Course: 3-day history of substernal chest pain, worse with breathing and cough, shortness of breath, worse with exertion. [place] hot and sweaty this morning but did not take her temperature. Nonproductive cough. No vomiting or diarrhea or abdominal pain. Also says when she awakened this morning she had an occipital headache and low backache which have both improved markedly. States that she is healthy except for thyroid problems and IV drug abuse. She had radiation treatment of Zoya's thyroiditis. She is supposed to be on propanolol but has been out for 3 days. She says that she was supposed to be put on thyroid supplement, but lost her insurance. She says that she has a history of IV drug abuse, she was clean for 8 years but relapsed about a year ago. Uses heroin daily. She last used yesterday and also used speed yesterday, which is not her usual drug of choice. Used a lot of drugs this past weekend. Admits to sharing needles. Prior history of hepatitis C, says she was treated and cured. No history of endocarditis. 08/28/20 CXR: FINDINGS: The cardiomediastinal silhouette and pulmonary vascularity are within normal limits. Bilateral nodular opacities are present overlying the 5th rib on both sides consistent with nipple shadows. There is an additional 1 cm indeterminate nodule of the lingula. The remaining lungs are clear. There are mild degenerative changes in the midthoracic spine. IMPRESSION: 1 cm indeterminate nodule of the lingula. Conside
--- NOTE | 2020-08-30 13:05 | PC.NURSE ---
Pt was d/cd and instructions were went over and pt was in agreeable to instructions and then refused to sign the discharge paper work. Pt stated she had no reason not to sign the papers. Two IV's were removed prior to pt leaving. Staff reported finding needles in the bathroom. Pt and visitor were educated hospital policy's and denied any substance use. Pt's significant other admitted to the needles being his and they were from when he cleaned out his pockets. was made aware.
--- NOTE | 2020-08-30 16:01 | PC.NURSE ---
Lab called and advised patients blood cultures showed nothing but there was gram positive cocci in pairs detected. Pt does not have PCP. Called second floor as pt was admitted and they advised pt had been discharged. Was transferred to Marisa (manager style on second floor) I advised her of the results and the patient did not have a PCP.
[2020-08-30 16:09] LABS: Strep Scrn Group A (Rapid) Negative (Negative)
== END 2020-08-30 12:55 | disposition home or self-care (01) ==
LOC: ER 18:02 → 2ND 18:04
PROVIDERS: Nurse Practitioner Family; Admitting Provider Family Medicine; Emergency Provider Emergency Medicine; PCP Nurse Practitioner Family; Visit Provider Family Medicine
DX: R07.9 Chest pain, unspecified (principal); R06.02 Shortness of breath; I10 Essential (primary) hypertension; F17.210 Nicotine dependence, cigarettes, uncomplicated; F10.10 Alcohol abuse, uncomplicated; F11.10 Opioid abuse, uncomplicated; E05.00 Thyrotoxicosis with diffuse goiter without thyrotoxic crisis or storm; T38.1X6A Underdosing of thyroid hormones and substitutes, initial encounter; Z91.120 Patient's intentional underdosing of medication regimen due to financial hardship
CPT/HCPCS: 36415; 71046; 71275; 80048; 80053; 80202; 80305; 81001; 81025; 83605; 84145; 84436; 84443; 84479; 84484; 85007; 85025; 85651; 86140; 87040; 87077; 87430; 93005; 93306; 93312; 96365; 96367; 99284; G0378; J2543; J3370; Q9967; U0003